=== PATIENT | male | born 1950 | race Caucasian/White ===

== ENCOUNTER 2020-11-10 10:28 | Outpatient (CLI) | payer MEDICARE, OTHER ==
--- NOTE | 2020-11-10 13:21 | XRAY Report ---
PROCEDURE: Hand 2 View BILAT INDICATIONS: BILATERAL HAND PAIN TECHNIQUE: 2 views of the hand(s) acquired. COMPARISON: None FINDINGS: Bones: No fractures or dislocations. No suspicious bony lesions. Minimal scattered IP degenerative narrowing is relatively symmetric. No gross erosions are identified. Soft tissues: No suspicious soft tissue calcifications. IMPRESSION: Minimal to mild scattered IP degenerative narrowing suggestive of arthritic change. No definitive ero sions. Reviewed by: Lupis Ventura MD on 11/10/2020 1:20 PM PDT Approved by: Lupis Ventura MD on 11/10/2020 1:20 PM PDT Station ID: [id number]
== END 2020-11-10 23:59 | disposition home or self-care (01) ==
LOC: DI.N 10:28
PROVIDERS: ATTEND Physician Assistant
DX: M19.042 Primary osteoarthritis, left hand (principal); M19.041 Primary osteoarthritis, right hand

== ENCOUNTER 2020-12-05 10:53 | Outpatient (CLI) | payer MEDICARE ==
--- NOTE | 2020-12-15 02:22 | XRAY Report ---
PROCEDURE: Foot 3 View RT INDICATIONS: BONY PROMINENCE TECHNIQUE: 3 views of the foot were acquired. Images are available for interpretation on 12/14/2020 COMPARISON: None FINDINGS: Bones: No fractures or dislocations. No suspicious bony lesions. Moderate first MTP degenerative n arrowing with areas of periarticular osteophyte and subchondral sclerosis. Scattered areas of mild IP degenerative narrowing are also present. Midfoot degenerative changes are present. Soft tissues: No tibiotalar joint effusion. Achilles tendon appears normal. IMPRESSION: Prominent first MTP degenerative narrowing. Reviewed by: Lupis Ventura MD on 12/15/2020 1:49 AM PDT Approved by: Lupis Ventura MD on 12/15/2020 1:49 AM PDT Station ID: [id number]
== END 2020-12-05 10:54 | disposition home or self-care (01) ==
LOC: DI.N 10:53
PROVIDERS: ATTEND Internal Medicine
DX: M19.071 Primary osteoarthritis, right ankle and foot (principal); T81.89XA Other complications of procedures, not elsewhere classified, initial encounter
CPT/HCPCS: 87070; 87181; 87205

== ENCOUNTER 2020-12-05 13:30 | Outpatient (CLI) | payer MEDICARE | END 2020-12-05 23:59 | LOC: LAB.N 13:30 | PROVIDERS: ATTEND Physician Assistant Medical | DX: T81.89XA Other complications of procedures, not elsewhere classified, initial encounter (principal) | CPT/HCPCS: 87070; 87181; 87205 ==

== ENCOUNTER 2021-04-12 16:14 | Outpatient (CLI) | payer MEDICARE ==
--- NOTE | 2021-04-13 09:43 | Ultrasound Report ---
PROCEDURE: Bladder INDICATIONS: FREQUENCY OF MICTURITION TECHNIQUE: Real-time scanning was performed of the urinary bladder, with image documentation. COMPARISON: None FINDINGS: Bladder: Pre-void bladder volume is 491 mL. Post-void residual is 244 mL. Pre-void images demonstr ate no intraluminal masses or stones. On pre-void images, bilateral ureteral jets are noted with col or Doppler interrogation. (Of note, ureteral jets may not be detectable in up to 25% of cases due to insufficient differences in specific gravity between ureteral and bladder urine). Miscellaneous: No free pelvic fluid. IMPRESSION: Significant postvoid residual estimated at 244 cc. Reviewed by: OLGA Thompson on 04/13/2021 9:42 AM PST Approved by: Kenneth Guevara MD on 04/13/2021 9:42 AM PST Station ID: [id number]
== END 2021-04-12 16:15 | disposition home or self-care (01) ==
LOC: DI 16:14
PROVIDERS: ATTEND Internal Medicine
DX: R35.0 Frequency of micturition (principal)

== ENCOUNTER 2021-12-22 08:00 | Outpatient (CLI) | payer MEDICARE | END 2021-12-22 23:59 | disposition home or self-care (01) | LOC: LAB.N 08:00 | PROVIDERS: ATTEND Family Medicine | DX: L02.414 Cutaneous abscess of left upper limb (principal) | CPT/HCPCS: 87070; 87181; 87205 ==

== ENCOUNTER 2022-03-30 09:53 | Outpatient (CLI) | payer MEDICARE ==
[2022-03-30 10:32] VITALS: BP 132/70
--- NOTE | 2022-03-30 10:32 | SLEEP CARE CONSULTATION ---
Information from patient questionnaire entered by Amy Castillo. I have reviewed and concur with the information entered by Amy Castillo. This document represents the service I personally performed and the decisions made by me, Jessi Mckeon ARNP. History of Present Illness Service Date and Time: 03/30/2022 0953 Reason for Visit: New patient Chief Complaint: reports: Snoring, Observed pauses in breathing Date of Onset: "forever" Usual bedtime: 10 PM - 12 midnight Time it takes to fall asleep: 5 mins to 1 hr (if foot is twitching) Snores at night: Yes Observed to quit breathing while asleep: Yes Sleeps alone due to snoring: No Number of times waking at night: 3-4 Reasons for waking at night: reports: Bathroom, Other ( waking him up to turn over). denies: Choking, Snoring, Gasping for air Toss, Turn, or Twitch while sleeping: Yes Recalls having dreams: Yes Usually gets out of bed at: 8-9 AM Feels refreshed in the morning: Yes Morning headache: Yes (2-3 time a month, slight headache) Sleepy or fatigued during the day: No Ever fallen asleep while driving: No Takes day naps: No Dreams during day naps: No Prior sleep studies: Yes Year and Where: has had previous positive study, over 10 yr ago Additional HPI information: I had the pleasure of seeing ERIK RED today regarding the possibility of him having a sleep disorder. His current complaints are snoring and observed pauses in breathing. He states he has been told he snores. He states that he has leg twitches at night. He states that he has had a sleep study in the past and he was on a CPAP. He states he moved and lost his machine. He had stopped using it a year or two prior to losing the machine. His will sleep with ear plugs but stays in same room/bed. She will wake him up to turn over to reduce snoring as well. He states he normally will wake up feeling rested. He does average 9-10 hours of sleep nightly as seen on his sleep diary. He does not take any naps. - Parasomnia Symptoms Ever been unable to move upon waking from sleep: No Walks in sleep: No Talks in sleep: Yes Ever acted out dreams in sleep: No Ever felt weak in the knees when startled or emotional: No Bothered by creepy, crawly, restless sensations in legs: Yes (feet/legs twitching, usually right foot (has drop foot)) Problems with memory or concentration: No Subjective Initial [place] Sleepiness Scale score: 8 (03/21/22) Past Medical History Past Medical History: reports: Arthritis, GERD, Other (drop foot; 2 back surgeries, right hip replacement; neck surgery; richie rotator cuff repair; multiple hernia repairs) Social History The patient's occupation is a RETIRED. Patient is and lives in [place]. Have you smoked in the past 12 months: No Alcohol use: Yes Alcohol amount and frequency: 3OZ 2-3 X WEEK Caffeine use: Yes Caffeine amount and frequency: 12OZ 3-5 Family History Family history of sleep disordered breathing: Yes Family Hx Sleep Apnea: Father: Snoring, Sleep apnea - Treated, Sibling: Snoring, Sleep apnea - Treated Allergies and Home Medications Known drug allergies: Yes (SULPHA) Drug allergies reviewed: Yes Home medication list reviewed: Yes (see list in EMR) Review of Systems Weight loss over past 5 years: 30 Cardiovascular: denies: high blood pressure Urinary: reports: frequency Neurological: denies: headaches Psychiatric: denies: anxiety, depression Ear/Nose/Throat: reports: nose bleeds, dry mouth/throat, tonsillectomy, wisdom teeth removed Musculoskeletal: reports: joint pain, mobility problems Physical Exam Vital signs obtained and entered by: AMY Langford MA Blood Pressure: 132/70 (LEFT ARM) Cuff size: regular Heart Rate: 62 O2 Saturation: 94 Height: 6 ft Weight: 252 lb 6.4 oz Body Mass Index: 34.2 BMI Classification: Obese Neck circumference: 18.5 Mouth and throat: narrow oropharynx Soft palate: long Hard palate: normal Uvula: normal Uvula visualization: 25% Mallampati Class III Tongue: enlarged in size with teeth hess on lateral edges Tonsils: absent bilaterally Neck: normal w/o lymphadenopathy or thyromegaly Heart: regular rate and rhythm Lungs: clear bilaterally Impression and Plan 1. Suspected Obstructive Sleep Apnea-Hypopnea Syndrome, as previously diagnosed and assuggested by a history of loud and irregular snoring and observed cessation of breath while asleep. Narrow oropharynx and obesity are common predisposing factors for obstructive sleep apnea-hypopnea syndrome. I recommend proceeding to polysomnography to confirm the diagnosis and to assess severity. If the patient has significant sleep disordered breathing, a manual CPAP titration study will also be performed to find the optimal treatment pressure. I informed the patient of what the sleep studies involve and after some discussion, obtained agreement to proceed. The pathophysiology of obstructive sleep apnea-hypopnea syndrome was discussed with the patient and health risks of cardiovascular and cerebrovascular disease if not treated. 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 Patient agreed to plan. * Schedule polysomnography * Avoid long distance driving or driving when feeling sleepy. * Avoid alcohol, sedative and muscle relaxant around bedtime. * Attempt to lose weight. * Review instructions provided by trained office staff on how to prepare for the sleep study. * Return for follow-up after sleep study completed. Counseling Topics: Weight loss health impact Visit Type: In Office Time Spent with Patient (minutes): 31 Provider Statement: I spent 100% of the Face to Face Visit with the patient with greater than 50% spent counseling the patient and coordination of care.
== END 2022-03-30 09:54 | disposition home or self-care (01) ==
LOC: SC 09:53
PROVIDERS: ATTEND Nurse Practitioner Family
DX: G47.33 Obstructive sleep apnea (adult) (pediatric) (principal); E66.9 Obesity, unspecified; Z68.34 Body mass index [BMI] 34.0-34.9, adult
CPT/HCPCS: 99203; G0463; 99212

== ENCOUNTER 2022-04-19 07:30 | Outpatient (CLI) | payer MEDICARE ==
[2022-04-19 12:30] LABS: CALCIUM 9.5 mg/dL (8.5-10.3); CREATININE 0.7 mg/dL (0.6-1.2); POTASSIUM 4.3 mmol/L (3.5-5.0)
== END 2022-04-19 07:45 | disposition home or self-care (01) ==
LOC: LAB.N 07:30
PROVIDERS: ATTEND Family Medicine
DX: R60.0 Localized edema (principal)
CPT/HCPCS: 36415; 80048

== ENCOUNTER 2022-04-27 09:31 | Outpatient (CLI) | payer MEDICARE | END 2022-04-27 09:32 | disposition home or self-care (01) | LOC: SC 09:31 | PROVIDERS: ATTEND Nurse Practitioner Family | DX: G47.33 Obstructive sleep apnea (adult) (pediatric) (principal); R09.02 Hypoxemia; R00.0 Tachycardia, unspecified | CPT/HCPCS: G0399 ×2; 95806 ==

== ENCOUNTER 2022-06-14 09:09 | Outpatient (CLI) | payer MEDICARE ==
--- NOTE | 2022-06-14 09:31 | Sleep Patient Instructions ---
Sleep Center Visit Summary - Patient Visit Information Reason for Visit: Sleep study follow up - Patient Instructions Instructions Attached: CPAP, CPAP Dc Additional Instructions: You will be started on CPAP therapy with pressure setting at 4-15 cmH2O. Please call the office to set up your next follow up once you obtain your new APAP machine and we will check compliance and response to therapy at that time. You may call the office with any concerns about pressure feeling too low or too much for adjustment if needed. You should contact DME for any questions or concerns about mask or equipment. - Clinic Information Contact: [facility] [address] [place] [address] [email or web address] T: [phone]
[2022-06-14 09:34] VITALS: BP 132/80
--- NOTE | 2022-06-14 09:34 | SLEEP CARE CONSULTATION ---
Information from patient questionnaire entered by Amy Castillo. I have reviewed and concur with the information entered by Amy Castillo. This document represents the service I personally performed and the decisions made by me, Jessi Mckeon ARNP. History of Present Illness Service Date and Time: 06/14/2022 09 Initial [place] Sleepiness Scale score: 8 (03/21/22) Current [place] Sleepiness Scale score: 12 (06/14/22) Additional HPI information: ERIK RED returns for follow up and results of the recently performed home sleep study. I explained the pathophysiology behind obstructive sleep apnea. We then spent quite a bit of time discussing different treatment options. For mild obstructive sleep apnea, surgery and oral appliance are alternatives to nasal CPAP therapy but in moderate or severe cases, nasal CPAP is the most effective and reliable treatment. Because apnea is primarily in supine position, then positional management therapy could be effective. Methods discussed such as positioning with pillows, using a T-shirt with tennis balls in the back, or commercial products that have a pillow format on back to prevent supine sleep. I reviewed the impact of weight changes on sleep apnea and strongly recommended losing weight. After some discussion, the patient opted to go with the nasal CPAP therapy. Nasal autoCPAP set at 4-15 cmH20 will be ordered with rationale explained. A manual titration study will be ordered if unable to find optimal pressure with office adjustments. I explained how CPAP machine works and what to expect when using the machine. Using CPAP every night in order to get used to it was emphasized. Patient advised to put CPAP mask on before getting into bed so as not to fall asleep without CPAP. To assist acclimation to CPAP use, it could also be used for a short time during day while reading or watching TV. The patient was instructed to call the CPAP supplier to discuss any mechanical problem that may occur. If the mask given is uncomfortable or is difficult to keep on through the night even with adjustment, contact the CPAP supplier as many will replace with another mask style if notified before 30 days. If snoring or perceives is not getting enough air or too much air from the machine, notify this office. Patient counseled not drink alcohol less than 4 hours before bedtime as it can increase snoring and apnea. Patient was cautioned about risks of drowsy driving until sleepiness symptoms resolve. Patient denies drowsy driving. Sleep Study - Results Type of Sleep Study: Home sleep study (COMPLETED 04/27/22) Prior sleep studies: Yes Year and Where: has had previous positive study, over 10 yr ago Polysomnography/Home Sleep Study results: Physician Impression: The quality of the study is poor due to frequent loss of pulse oximetry signal. The length of the study is adequate (> 240 minutes). Please also see the tabulated and graphic data. 1. Obstructive Sleep Apnea-Hypopnea (ICD-10 G47.33), very severe, with an AHI of 65.3/hr and johan SaO2 of 67%. During the study, the patient had 661 apneas (661 obstructive, 0 central, 0 mixed) and 1 hypopneas. The longest episode lasted 117.5 seconds. The respiratory events occurred more frequently during supine sleep (supine AHI was 65.8 and non-supine, 25.71). 2. Hypoxemia (ICD-10 R09.02), moderate, with the lowest oxygen saturation of 67 % and 203.4 minutes with SaO2 under 90%. However, this may not be accurate. 3. Tachycardia, with maximum recorded heart rate of 251 beats per minute, most likely an artifact. Allergies and Home Medications Known drug allergies: Yes (sulfa) Drug allergies reviewed: Yes Home medication list reviewed: Yes (no changes) Review of Systems Review of systems same as previous: Yes (no changes) Physical Exam Vital signs obtained and entered by: AMY Langford MA Blood Pressure: 132/80 (LEFT ARM) Cuff size: regular Heart Rate: 68 O2 Saturation: 97 Height: 6 ft Weight: 246 lb Body Mass Index: 33.3 BMI Classification: Obese Impression and Plan 1. Obstructive Sleep Apnea-Hypopnea Syndrome, very severe, with lowest oxygen saturation of 67%. Obviously this is the cause of the patients symptoms of unrefreshed sleep, and excessive daytime sleepiness. Positive pressure therapy could benefit gastric reflux. As mentioned above, the patient will be started on nasal autoCPAP therapy with pressure set at 4-15 cmH2O. A manual titration study will be completed if unable to find optimal treatment pressure with office adjustments. Compliance guidelines also reviewed. A copy of compliance guidelines will be given for reference at check out. Because the apnea is more severe supine, I instructed to avoid sleeping supine using pillow positioning until able to start CPAP use. 2. Hypoxemia, moderate, with the lowest oxygen saturation of 67 % and 203.4 minutes with SaO2 under 90%. However, according to Dr. Moeller, this may not be accurate because of frequent pulse oximetry signal loss during the study. * Nasal auto CPAP therapy, pressure at 4-15 cm H2O. * Attempt to lose weight. * Avoid alcohol consumption near bedtime. * Avoid supine sleep until using CPAP. * The patient is again cautioned about driving until sleepiness completely resolves. * Return one month after CPAP obtained. I will assess response to therapy and compliance at that time. Counseling Topics: Weight loss health impact Visit Type: In Office Time Spent with Patient (minutes): 21 Provider Statement: I spent 100% of the Face to Face Visit with the patient with greater than 50% spent counseling the patient and coordination of care.
== END 2022-06-14 09:10 | disposition home or self-care (01) ==
LOC: SC 09:09
PROVIDERS: ATTEND Nurse Practitioner Family
DX: G47.33 Obstructive sleep apnea (adult) (pediatric) (principal); R09.02 Hypoxemia; E66.9 Obesity, unspecified; Z68.33 Body mass index [BMI] 33.0-33.9, adult
CPT/HCPCS: 99213; G0463; 99212

== ENCOUNTER 2022-08-27 09:16 | Outpatient (CLI) | payer MEDICARE ==
--- NOTE | 2022-08-27 11:48 | SLEEP CARE CONSULTATION ---
Information from patient questionnaire entered by Darius Castillo. I have reviewed and concur with the information entered by Darius Castillo. This document represents the service I personally performed and the decisions made by me, Alfred Rodarte MD, [facility]. History of Present Illness Service Date and Time: 08/27/2022 0916 Reason for follow up: first compliance Equipment type: CPAP (RESMED) Prior sleep studies: Yes Year and Where: has had previous positive study, over 10 yr ago Type of Sleep Study: Home sleep study (COMPLETED 04/27/22) HPI additional information: Mr. Zuñiga was diagnosed to have very severe obstructive sleep apnea-hypopnea syndrome and returns today for follow up of CPAP therapy. The patient purchased the device from [employer]. and was fitted with a full face mask. He uses the device nightly and all through the night. The compliance report shows that he uses the device 49 nights out of the past 50 nights, averaging 7.7 hours a night. He complains of no particular problem with the device such as soreness on the face, dry nose, epistaxis, nasal congestion or headache. He thinks that the pressure of 4 - 15 cmH2O is comfortable. On the CPAP therapy he notices improvement in his sleep quality, and that he wakes up feeling fresher in the morning and more awake/alert during the day. His notices no snore at all. [place] Sleepiness Scale score is 2. The average residual AHI is 2.9; and average air leak is 3.7 L/minute. The 90th percentile pressure is 14.6 cmH2O. Sleep Study - Results Type of Sleep Study: Home sleep study (COMPLETED 04/27/22) Prior sleep studies: Yes Year and Where: has had previous positive study, over 10 yr ago CPAP Compliance Data - Data Reviewed with Patient Average duration of nightly device use: 7HRS 12MIN Compliance rate %: 93 (07/25/22-08/23/22) Current pressure setting (cmH2O): 4-15 Average residual AHI: 2.9 Subjective Initial [place] Sleepiness Scale score: 8 (03/21/22) Current [place] Sleepiness Scale score: 2 (08/27/22) Allergies and Home Medications Drug allergies reviewed: Yes Home medication list reviewed: Yes Review of Systems Review of systems same as previous: Yes Physical Exam Vital signs obtained and entered by: DARIUS Langford MA Blood Pressure: 128/78 (LEFT ARM) Cuff size: regular Heart Rate: 78 O2 Saturation: 96 Height: 6 ft Weight: 235 lb 3.2 oz Body Mass Index: 31.8 BMI Classification: Obese Impression and Plan IMPRESSION: 1. Obstructive Sleep Apnea-Hypopnea Syndrome, very severe, with the patient continuing to do well on nasal CPAP therapy. He has excellent compliance and significant clinical benefits. The current pressure appears effective and comfortable. Overall, he is very satisfied with the treatment and plans to continue with it long-term. No adjustment is necessary today. PLAN: 1. Continue with autoCPAP set at 4 - 15 cm H2O. 2. Try to lose weight 3. Return in one year for follow up or earlier if there is any problem with the treatment. Continue with device pressure at (cmH2O): 4-15 Follow up with Sleep Care in: 1 year Visit Type: In Office Time Spent with Patient (minutes): 15 Provider Statement: I spent 100% of the Face to Face Visit with the patient with greater than 50% spent counseling the patient and coordination of care.
[2022-08-27 11:50] VITALS: BP 128/78
== END 2022-08-27 09:17 | disposition home or self-care (01) ==
LOC: SC 09:16
PROVIDERS: ATTEND Internal Medicine Pulmonary Disease
DX: G47.33 Obstructive sleep apnea (adult) (pediatric) (principal); E66.9 Obesity, unspecified; Z68.31 Body mass index [BMI] 31.0-31.9, adult
CPT/HCPCS: 99212; G0463

== ENCOUNTER 2023-01-07 09:12 | Outpatient (CLI) | payer MEDICARE ==
--- NOTE | 2023-01-07 16:29 | Ultrasound Report ---
PROCEDURE: Duplex Ext Veins Bilateral INDICATIONS: Patrice Gage MD TECHNIQUE: Real-time imaging, as well as color and pulse Doppler interrogation, were performed of the deep veins of both legs from the inguinal ligament to the popliteal fossa. Attempted visualization of the calf veins was performed. COMPARISON: None FINDINGS: The deep veins are normally compressible, and free of intraluminal thrombus. Color and pu lse Doppler demonstrate normal phasic intravascular flow. There is normal augmentation response to d istal compression maneuver. IMPRESSION: No deep venous thrombosis of the visualized lower extremities. Reviewed by: Iliana Johnston MD on 01/07/2023 4:28 PM PST Approved by: Iliana Johnston MD on 01/07/2023 4:28 PM PST Station ID: [id number]
--- NOTE | 2023-01-07 16:33 | Ultrasound Report ---
PROCEDURE: Ankle Brachial Index INDICATIONS: NON-PRS CHR ULCER OTH PRT UNSP LOW LEG W FAT LAYER TECHNIQUE: Ankle-brachial indices were obtained bilaterally and recorded. COMPARISONS: None. FINDINGS: Right ankle brachial index (VEGA): 1.19 Left ankle brachial index (VEGA): 1.13 Healing potential: Ankle pressures >55 mm Hg in non-diabetics and >80 mm Hg in diabetics are likely to achieve primary h ealing of ischemic foot ulcers. Toe pressures >30 mm Hg are likely to achieve primary healing of ischemic foot ulcers, toe or transme tatarsal amputations. IMPRESSION: ABIs within normal limits. Reviewed by: Iliana Johnston MD on 01/07/2023 4:32 PM PST Approved by: Iliana Johnston MD on 01/07/2023 4:32 PM PST Station ID: [id number]
== END 2023-01-07 09:13 | disposition home or self-care (01) ==
LOC: DI 09:12
PROVIDERS: ATTEND Internal Medicine
DX: L97.802 Non-pressure chronic ulcer of other part of unspecified lower leg with fat layer exposed (principal)
CPT/HCPCS: 93922; 93970

== ENCOUNTER 2023-09-02 15:35 | Outpatient (CLI) | payer MEDICARE ==
--- NOTE | 2023-09-03 08:20 | SLEEP CARE CONSULTATION ---
Information from patient questionnaire entered by Darius Castillo. I have reviewed and concur with the information entered by Darius Castillo. This document represents the service I personally performed and the decisions made by me, Alfred Rodarte MD, [facility]. History of Present Illness Service Date and Time: 09/02/2023 1535 Reason for follow up: annual (LAST SEEN 08/2022) Equipment type: CPAP (RESMED) Prior sleep studies: Yes Year and Where: has had previous positive study, over 10 yr ago Type of Sleep Study: Home sleep study (COMPLETED 04/27/22) HPI additional information: Mr. Zuñiga was diagnosed to have very severe obstructive sleep apnea-hypopnea syndrome and returns today for follow up of CPAP therapy. The patient purchased the device from [employer]. and was fitted with a full face mask. He uses the device nightly and all through the night. The compliance report shows that he uses the device 353 nights out of the past 365 nights, averaging 8.2 hours a night. He complains of no particular problem with the device such as soreness on the face, dry nose, epistaxis, nasal congestion or headache. He thinks that the pressure of 4 - 15 cmH2O is comfortable. On the CPAP therapy he notices improvement in his sleep quality, and that he wakes up feeling fresher in the morning and more awake/alert during the day. His notices no snore at all. [place] Sleepiness Scale score is 6. The average residual AHI is 5.1; and average air leak is 7 L/minute. The 90th percentile pressure is 14.6 cmH2O. Sleep Study - Results Type of Sleep Study: Home sleep study (COMPLETED 04/27/22) Prior sleep studies: Yes Year and Where: has had previous positive study, over 10 yr ago CPAP Compliance Data - Data Reviewed with Patient Average duration of nightly device use: 8HRS 13MINS Compliance rate %: 96 (08/29/22-08/28/23) Current pressure setting (cmH2O): 4-15 Average residual AHI: 5.1 Subjective Initial [place] Sleepiness Scale score: 8 (03/21/22) Current [place] Sleepiness Scale score: 6 (09/02/23) Allergies and Home Medications Drug allergies reviewed: Yes Home medication list reviewed: Yes Review of Systems Review of systems same as previous: Yes (NO CHANGE) Physical Exam Vital signs obtained and entered by: DARIUS Langford MA Blood Pressure: 168/91 (RIGHT ARM) Cuff size: long Heart Rate: 64 O2 Saturation: 97 Height: 6 ft Weight: 260 lb Body Mass Index: 35.2 BMI Classification: Obese Impression and Plan IMPRESSION: 1. Obstructive Sleep Apnea-Hypopnea Syndrome, very severe, with the patient continuing to do well on nasal CPAP therapy. He has excellent compliance and significant clinical benefits. The current pressure appears effective and comfortable. Overall, he is very satisfied with the treatment and plans to continue with it long-term. No adjustment is necessary today. PLAN: 1. Continue with autoCPAP set at 4 - 15 cm H2O. 2. Try to lose weight 3. Return in one year for follow up or earlier if there is any problem with the treatment. Follow up with Sleep Care in: 1 year Visit Type: In Office Time Spent with Patient (minutes): 15 Provider Statement: I spent 100% of the Face to Face Visit with the patient with greater than 50% spent counseling the patient and coordination of care.
[2023-09-03 08:35] VITALS: BP 168/91; O2SAT 97
== END 2023-09-02 15:36 | disposition home or self-care (01) ==
LOC: SC 15:35
PROVIDERS: ATTEND Internal Medicine Pulmonary Disease
DX: G47.33 Obstructive sleep apnea (adult) (pediatric) (principal); Z68.35 Body mass index [BMI] 35.0-35.9, adult
CPT/HCPCS: 99212; G0463